=== PATIENT | male | born 1950 | race African-American/Black ===

== ENCOUNTER → 2018-06-29 | Outpatient (CLI) | payer OTHER ==
[~2018-06-29] MED LIST: ALBUTEROL2.5 MG/31 IH; AMOXICILLIN 50500 M1 PO; AZITHROMYCIN 2250 MG; AZITHROMYCIN 2250 MG PO; FLEXERIL PO; HYDROXYZINE HCL10 M1; MEDROL DOSPAK21 TA1; MEDROLDOSEPACK PO; NAPROSYN500 MG PO; NOHOMEMEDICATIONS; NORCO 5-325 TA1 EACH PO; NORFLEX100 MG PO; PREDNISONE50 MG PO; PROAIR HFA8.5 GM IH; PROVENTIL HFA6.7 G1 INH; VENTOLIN HFA 1818 GM INH
== END ==
LOC: RAD 15:11
DX: J44.9 Chronic obstructive pulmonary disease, unspecified (principal); F17.200 Nicotine dependence, unspecified, uncomplicated

== ENCOUNTER → 2018-12-29 | Outpatient (CLI) | payer OTHER | LOC: RAD 14:40 | DX: R05 Cough (principal) ==

== ENCOUNTER 2019-04-17 08:15 | Inpatient (IN) | payer OTHER ==
[2019-04-17] VITALS (7 sets, daily range): BP systolic 152–182; BP diastolic 84–106
[~2019-04-17] VITALS: Ht 182.9 cm; Wt 87.7 kg
[2019-04-17 09:27] LABS: ABSOLUTE NEUTROPHILS 5.9 thou/uL (1.4-8.2); BASOPHILS 0.3 % (0.0-2.0); EOSINOPHILS 1.8 % (0.0-3.0); HEMATOCRIT 42.8 % (42.0-52.0); LYMPHOCYTES 23.3 % (24.0-44.0); MCH 30.6 pg (26.0-34.0); MCHC 32.7 g/dL (28.0-37.0); MCV 93.4 fL (80.0-100.0); MONOCYTES 8.7 % (1.0-8.0); PLATELET COUNT 252 thou/uL (150-400); POLYS 65.9 % (36.0-66.0); RBC 4.59 mil/uL (4.50-6.00); RDW 12.9 % (10.5-14.5)
[2019-04-17 09:44] LABS: ANION GAP 3 mmol/L (7-16); APTT 28.2 Seconds (24.5-32.8); BUN 12 mg/dL (7-18); CHLORIDE 96 mmol/L (98-107); CO2 37 mmol/L (21-32); CREATININE 0.9 mg/dL (0.7-1.3); GLUCOSE 107 mg/dL (74-106); INR 1.2; POTASSIUM 3.9 mmol/L (3.5-5.1); PROTIME 12.4 Seconds (9.3-11.4); SODIUM 136 mmol/L (136-145)
[2019-04-17 09:55] LABS: ALBUMIN 3.3 g/dL (3.4-5.0); MAGNESIUM 1.9 mg/dL (1.8-2.4); SGOT 31 U/L (15-37); SGPT 62 U/L (30-65); TOTAL BILIRUBIN 0.5 mg/dL (<0.1-1.0); TROPONIN-I <0.06 ng/mL (<0.06)
[2019-04-17 11:27] LABS: AMP/METHAMP Negative (Negative); BARBITURATES Negative (Negative); BENZODIAZEPINES Negative (Negative); COCAINE Negative (Negative); METHADONE Negative (Negative); OPIATES Negative (Negative); PCP Negative (Negative)
--- NOTE | 2019-04-17 15:37 | 2DMMODE ---
[facility] [address] [place] [address] 2 D/M-MODE ECHOCARDIOGRAM Name: ABIGAIL GUPTA Room #: 355-P [facility] IN [facility]#: [id number] Admission: 04/17/19 Attend Phys: Cresencio Walker MD Discharge: Date of : 46 Report #: [id number] THIS REPORT FOR: //name// APPROVED REPORT Study performed: 04/17/2019 13:44:22 EXAM: Comprehensive 2D, Doppler, and color-flow Echocardiogram Patient Location: In-Patient Room #: 355 Status: routine BSA: 2.12 HR: 61 bpm BP: 182/106 mmHg Rhythm: Irregular Other Information Study Quality: Technically Limited Technically limited study due to lung disease. Indications Shortness of breath, elevated BNP. HX: COPD, HTN, DM. 2D Dimensions RVDd: 49.50 mm IVSd: 11.03 (7-11mm) LVOT Diam: 20.34 (18-24mm) LVDd: 47.86 mm PWd: 9.36 (7-11mm) Ascending Ao: 37.27 (22-36mm) LVDs: 29.86 (25-40mm) Aortic Root: 35.45 mm IVC: 18.00 mm Volumes Left Atrial Volume (Systole) Single Plane 4CH: 26.47 mL Single Plane 2CH: 39.65 mL LA ESV Index: 18.00 mL/m2 Aortic Valve AoV Peak Filippo.: 2.56 m/s AO Peak Gr.: 26.29 mmHg AO Mean Gr.: 11.22 mmHg AO V2 Mean: 1.52 m/s AO V2 VTI: 46.34 cm [facility] [address] [address] 2 D/M-MODE ECHOCARDIOGRAM Name: ABIGAIL GUPTA Room #: 355-P [facility]#: [id number] Admission: 04/17/19 Attend Phys: Cresencio Walker MD Discharge: Date of : 46 Report #: [id number] Mitral Valve E/A Ratio: 0.7 MV Decel. Time: 235.58 ms MV E Max Filippo.: 0.77 m/s MV A Filippo.: 1.11 m/s MV PHT: 68.32 ms IVRT: 83.04 ms Tricuspid Valve RAP Estimate: 10.00 mmHg Left Ventricle The left ventricle is normal size. There is normal left ventricular wall thickness. The left ventricular systolic function is normal. LVEF is 60-65%. Mild diastolic dysfunction is present (impaired relaxation pattern). Right Ventricle Right ventricle is at the upper limits of normal. The right ventricular systolic function is normal. Atria The left atrium size is normal. Right atrium is at the upper limits of normal. Aortic Valve Aortic valve leaflets are mildly thickened. No aortic regurgitation is present. There is mild valvular aortic stenosis. Calculated aortic valve area is 1.6 cm2 with maximum pressure gradient of 26 mmHg and mean pressure gradient of 11 mmHg. Mitral Valve The mitral valve is normal in structure. Trace mitral regurgitation. No evidence of mitral valve stenosis. Tricuspid Valve The tricuspid valve is normal in structure. Trace tricuspid regurgitation. Unable to assess PA pressure. Pulmonic Valve Pulmonic valve is not well visualized. Great Vessels The aortic root is normal in size. The ascending aorta is normal in size. IVC is normal in size and collapses <50% with inspiration. [facility] [place] [address] 2 D/M-MODE ECHOCARDIOGRAM Name: GUPTAABIGAIL Del Rosario Room #: 355-P [facility] IN ..#: [id number] Admission: 04/17/19 Attend Phys: Cresencio Walker MD Discharge: Date of : 46 Report #: [id number] Pericardium There is no pericardial effusion. <Conclusion> The left ventricle is normal size. LVEF is 60-65%. Aortic valve leaflets are mildly thickened. There is mild valvular aortic stenosis. Calculated aortic valve area is 1.6 cm2 with maximum pressure gradient of 26 mmHg and mean pressure gradient of 11 mmHg. The mitral valve is normal in structure. Trace mitral regurgitation. The tricuspid valve is normal in structure. Trace tricuspid regurgitation. Unable to assess PA pressure. There is no pericardial effusion. <ELECTRONICALLY SIGNED> By: Augustus Rodriguez MD 04/17/19 [id number] Augustus Rodriguez MD /INF
--- NOTE | 2019-04-17 19:39 | NUR ---
pt admitted from ER for high BP and bradycardia, pt is A&OX3, Cardiology consult has seeing the pt, new order received, pt's bp and Hr have improved, bp 160-170/80-90 mmgh, Hr 70-80, RN has called dr to report , pt's last time drinking alcohol is last nigh about 2000pm, and pt starts both hand tremors about 1630pm, new order received, starts CIWA protocol at 1700pm. RN has reported to next shift to follow dr order and keep eye on pt.
[2019-04-18 03:10] VITALS: BP 140/92
--- NOTE | 2019-04-18 05:33 | NUR ---
PT MAKING PROGRESS TOWARDS GOALS. HAS DENIED ANY CHEST DISCOMFORT OR SOA THROUGHOUT THE NIGHT. HR IMPROVING OVERNIGHT FROM THE 50 INTO THE 70'S. CONTINUE TO MONITOR.
[2019-04-18 06:29] LABS: ABSOLUTE NEUTROPHILS 10.3 thou/uL (1.4-8.2); BASOPHILS 0.1 % (0.0-2.0); HEMATOCRIT 40.2 % (42.0-52.0); HEMOGLOBIN 13.2 gm/dL (14.0-18.0); LYMPHOCYTES 16.3 % (24.0-44.0); MCH 30.6 pg (26.0-34.0); MCHC 32.9 g/dL (28.0-37.0); MCV 92.9 fL (80.0-100.0); MONOCYTES 8.3 % (1.0-8.0); PLATELET COUNT 252 thou/uL (150-400); POLYS 75.3 % (36.0-66.0); RBC 4.33 mil/uL (4.50-6.00); RDW 12.8 % (10.5-14.5); WBC 13.7 thou/uL (4.0-11.0)
[2019-04-18 07:06] LABS: ANION GAP 5 mmol/L (7-16); BUN 14 mg/dL (7-18); CHLORIDE 99 mmol/L (98-107); CO2 33 mmol/L (21-32); CREATININE 0.9 mg/dL (0.7-1.3); GLUCOSE 109 mg/dL (74-106); MAGNESIUM 1.8 mg/dL (1.8-2.4); POTASSIUM 3.9 mmol/L (3.5-5.1); SODIUM 137 mmol/L (136-145); TROPONIN-I <0.06 ng/mL (<0.06)
[2019-04-18 07:07] LABS: CHOLESTEROL 131 mg/dL (<200); HDL CHOLESTEROL 58 mg/dL (>40); LDL CHOLESTEROL 57 mg/dL (<100); TC:HDL 2.3 Ratio (Not establshd); TRIGLYCERIDE 80 mg/dL (<150); VLDL 16 mg/dL (<40)
[2019-04-18 07:21] VITALS: BP 137/83
--- NOTE | 2019-04-18 07:52 | EKG ---
[address] [place] [address] ELECTROCARDIOGRAM REPORT Name: ABIGAIL GUPTA Room #: 355-P ADM IN M.R.#: [id number] Admission: 04/17/19 Attend Phys: Cresencio Walker MD Discharge: Date of : 46 Report #: [id number] THIS REPORT FOR: //name// [facility] ED Test Date: 2019-04-17 Test Time: 08:22:41 Pat Name: ABIGAIL GUPTA Department: Room: [facility] Gender: M Ash Handler: ADIA : [id number] Requested By: Earle Steven Order Number: [id number] MD: Serge Fox Measurements Intervals [place] Rate: 37 P: 46 MT: 146 QRS: 5 QRSD: 93 T: -24 QT: 501 QTc: 393 Interpretive Statements Sinus bradycardia Atrial premature complex Nonspecific T abnormalities, diffuse leads Compared to ECG 04/01/2016 22:34:51 T-wave abnormality now present Heart rate has slowed Electronically Signed On 04-18-2019 7:52:24 [employer] by Serge Fox [email or web address] <ELECTRONICALLY SIGNED> By: Serge Fox MD, [facility] 04/18/19 [id number] 1 Serge Fox MD, [facility] /EPI
--- NOTE | 2019-04-18 10:42 | NUR ---
INITIAL ASSESSMENT: Pt evaluated for d/c planning needs. Reviewed chart and spoke with nurse and pt. Pt is alert and oriented. Pt lives in duplex with SO and was independent with ADL's prior to admission to the hospital. Pt works full-time. Pt has no DME and has not had home health in the past. Pt plans on returning home on d/c from hospital. Will remain available to assist as needed.
[2019-04-18 11:22] VITALS: BP 135/81
[2019-04-18 15:11] VITALS: BP 144/85
[2019-04-18 19:11] VITALS: BP 152/93
[2019-04-19 04:14] VITALS: BP 159/99
--- NOTE | 2019-04-19 06:41 | NUR ---
PT VOICED NO COMPLAINTS OVERNIGHT. ONLY BREATHING TX REQUESTED. PT UP AD MANOHAR. VSS. HOURLY ROUNDING.
[2019-04-19 07:29] VITALS: BP 153/89
[2019-04-19 11:39] VITALS: BP 151/101
[2019-04-19] MEDS ORDERED: LISINOPRIL20 MG PO ×2 (15:06→15:10)
[2019-04-19] MEDS ORDERED: NIFEDIPINE ER30 M1 PO ×2 (15:06→15:10)
[2019-04-19 15:12] VITALS: BP 151/101
--- NOTE | 2019-04-19 15:20 | NUR ---
DISCHARGE NOTE: BRY reviewed chart and spoke with nursing and attending physician. Pt is medically stable for discharge home today. No discharge needs identified at this time, but is available to assist should needs arise.
--- NOTE | 2019-04-19 15:29 | NUR ---
IV AND TELE DISCONTINUED. PT'S SPOUSE WILL BE HERE TO CHIEF [employer]ENT[employer] OFFICER PT AT 1730 THIS EVENING. WILL DISCHARGE TO HOME
[2019-04-19 16:09] VITALS: BP 139/90
== END 2019-04-19 17:12 | disposition home or self-care (01) | DRG 305 ==
LOC: ER 08:15 → 3W 11:11 → EROBS 11:11 → 3W 12:45
PROVIDERS: Emergency Medicine; Nurse Practitioner; ADMIT Hospitalist
DX: I16.0 Hypertensive urgency (principal); J44.1 Chronic obstructive pulmonary disease with (acute) exacerbation; K21.9 Gastro-esophageal reflux disease without esophagitis; I10 Essential (primary) hypertension; T50.905A Adverse effect of unspecified drugs, medicaments and biological substances, initial encounter; R00.1 Bradycardia, unspecified; F17.210 Nicotine dependence, cigarettes, uncomplicated; E11.9 Type 2 diabetes mellitus without complications; F12.90 Cannabis use, unspecified, uncomplicated; Z83.3 Family history of diabetes mellitus; Z82.3 Family history of stroke; Z88.6 Allergy status to analgesic agent; Z88.8 Allergy status to other drugs, medicaments and biological substances; Y92.89 Other specified places as the place of occurrence of the external cause; Z71.6 Tobacco abuse counseling; Z72.89 Other problems related to lifestyle; Z28.21 Immunization not carried out because of patient refusal; Z79.899 Other long term (current) drug therapy
CPT/HCPCS: 10779; 10879

== ENCOUNTER → 2019-06-21 | Outpatient (CLI) | payer OTHER ==
[~2019-06-21] MED LIST changes: +LISINOPRIL20 MG PO; +NIFEDIPINE ER30 M1 PO
== END ==
LOC: CAT 06-14 11:42
DX: J44.9 Chronic obstructive pulmonary disease, unspecified (principal); M47.816 Spondylosis without myelopathy or radiculopathy, lumbar region; I25.10 Atherosclerotic heart disease of native coronary artery without angina pectoris; K57.30 Diverticulosis of large intestine without perforation or abscess without bleeding; M25.78 Osteophyte, vertebrae; Z87.891 Personal history of nicotine dependence

== ENCOUNTER → 2019-12-27 | Outpatient (CLI) | payer OTHER | LOC: SJCVC 10:33 | PROVIDERS: ATTEND Internal Medicine Cardiovascular Disease | DX: I49.1 Atrial premature depolarization (principal); R94.31 Abnormal electrocardiogram [ECG] [EKG]; I10 Essential (primary) hypertension; J44.9 Chronic obstructive pulmonary disease, unspecified; F17.210 Nicotine dependence, cigarettes, uncomplicated; Z82.49 Family history of ischemic heart disease and other diseases of the circulatory system ==